=== PATIENT | male | born 1990 | race Caucasian/White ===

== ENCOUNTER 2018-07-06 05:55 | Day surgery (SDC) | payer OTHER ==
[2018-07-06] MEDS: SOD CHLORIDE 0.9% 1,000 ML IV (06:43)
[2018-07-06 07:05] LABS: WHITE BLOOD COUNT 6.4 10^3/ul (4.8-10.8)
[2018-07-06 07:05] LABS: ADD MAN DIFF? NO; BASOPHILS % 0.5 % (0.0-2.0); EOSINOPHILS # 0.2 10^3/ul (0.0-0.5); EOSINOPHILS % 2.7 % (0.0-7.0); HEMATOCRIT 44.4 % (42.0-52.0); HEMOGLOBIN 15.1 g/dl (14.0-18.0); LYMPHOCYTES # 2.4 10^3/ul (0.8-2.9); LYMPHOCYTES % 37.7 % (15.0-51.0); MEAN CORPUSCULAR VOLUME 91.2 fl (82.0-101.0); MEAN PLATELET VOLUME 9.9 fl (7.4-10.4); MONOCYTE # 0.6 10^3/ul (0.3-0.9); MONOCYTES % 8.9 % (0.0-11.0); NEUTROPHIL # 3.2 10^3/ul (1.6-7.5); PLATELET COUNT 325 10^3/UL (140-415); RED BLOOD COUNT 4.87 10^6/ul (4.70-6.10); RED CELL DISTRIBUTION WIDTH 12.1 % (11.5-14.5)
[2018-07-06 07:27] LABS: INR 1.02; PARTIAL THROMBOPLASTIN TIME 30.2 Sec (23.0-35.0); PROTIME 13.5 Sec (11.9-14.9); PT RATIO 1.1
[2018-07-06 07:33] LABS: ALANINE AMINOTRANSFERASE 57 IU/L (13-69); ALBUMIN 4.4 g/dl (3.3-4.9); ALBUMIN/GLOBULIN RATIO 1.22; ALKALINE PHOSPHATASE 80 IU/L (42-121); ANION GAP 10 (5-13); ASPARTATE AMINO TRANSFERASE 35 IU/L (15-46); BILIRUBIN,INDIRECT 0.7 mg/dl (0-1.1); BILIRUBIN,TOTAL 0.7 mg/dl (0.2-1.3); BLOOD UREA NITROGEN 13 mg/dl (7-20); CALCIUM 9.7 mg/dl (8.4-10.2); CARBON DIOXIDE 26 mmol/L (21-31); CHLORIDE 105 mmol/L (97-110); CREATININE 0.68 mg/dl (0.61-1.24); Estimated GFR > 60 mL/min (>60); GLUCOSE 98 mg/dl (70-220); POTASSIUM 4.1 mmol/L (3.5-5.1); SODIUM 141 mmol/L (135-144)
[2018-07-06] MEDS: BUPIVACAINE 0.25% (MPF) 30 ML INJ (07:46)
[2018-07-06] MEDS: POLYMYXIN/BACITRACIN 1L IRRIG (07:46)
[2018-07-06] MEDS ORDERED: FENTAnyl 50 MCG/ML VIAL (08:22)
[2018-07-06] MEDS ORDERED: PROPOFOL 20 ML (08:22)
[2018-07-06] MEDS ORDERED: MIDAZOLAM 1 MG/ML 2 ML INJ (08:22)
[2018-07-06] MEDS ORDERED: LIDOCAINE 1% (MDV) 20 ML INJ (08:22)
[2018-07-06] MEDS ORDERED: ETOMIDATE 20 MG INJ (08:22)
[2018-07-06] MEDS ORDERED: ROPIVACAINE 0.5 % 30 ML VIAL (08:22)
[2018-07-06] MEDS ORDERED: ONDANSETRON 4 MG INJ (08:36)
[2018-07-06] MEDS ORDERED: DEXAMETHASONE 4 MG/ML 5 ML INJ (08:36)
[2018-07-06] MEDS ORDERED: CEFAZOLIN 1 GM INJ (08:36)
[2018-07-06] MEDS ORDERED: HYDROmorphONE 1 MG/5 ML IV SYRINGE IV ×3 (09:00)
[2018-07-06] MEDS ORDERED: ONDANSETRON 4 MG INJ IV (09:00)
[2018-07-06] MEDS ORDERED: KETOROLAC 30 MG INJ IV (09:00)
[2018-07-06] MEDS: HYDROCODONE/APAP (5/325) TAB PO (09:46)
[2018-07-06] MEDS: ONDANSETRON 4 MG INJ IV (09:46)
[2018-07-06] MEDS: HYDROmorphONE 1 MG/5 ML IV SYRINGE IV (10:10)
[2018-07-06] MEDS: CEFAZOLIN 2 GM/50 ML (PMX) 50 ML IVPB (10:11)
== END 2018-07-06 11:00 | disposition home or self-care (01) ==
LOC: SDS 05:55
DX: K40.90 Unilateral inguinal hernia, without obstruction or gangrene, not specified as recurrent (principal); E66.9 Obesity, unspecified
CPT/HCPCS: 49507; 80053; 85025; 85610; 85730